=== PATIENT | male | born 1970 | race Caucasian/White ===

== ENCOUNTER → 2020-03-17 | Outpatient (CLI) | payer BC ==
--- NOTE | 2020-03-17 15:42 | RAD ---
EXAM DESCRIPTION: Chest,2 Views CLINICAL HISTORY: scute bronchitis COMPARISON: None FINDINGS: Two-view chest x-ray shows cardiomediastinal silhouette and pulmonary vasculature to be within normal limits. Mild tortuosity the thoracic aorta. The lungs are normally aerated. Mild patchy areas of airspace density in the right perihilar to lower lobe region are seen with questionable interstitial thickening in the left lower lobe. Costophrenic angles are sharp. Osseous structures are unremarkable IMPRESSION: Mild airspace densities in the right lung and questionably in the left lower lobe suggests atelectasis versus pneumonia. Consider viral etiology. Electronically signed by: Morro Eli MD 03/17/2020 3:40 PM [facility]
== END ==
LOC: RAD 12:06
PROVIDERS: ATTEND Nurse Practitioner Family
DX: J20.9 Acute bronchitis, unspecified (principal); R91.8 Other nonspecific abnormal finding of lung field